=== PATIENT | female | born 1940 | race Caucasian/White ===

== ENCOUNTER → 2017-11-14 | Outpatient (CLI) | payer OTHER ==
[~2017-11-14] MED LIST: ALEVE220 MG PO; AMARYL4 MG PO; ASPIR 8181 M1 PO; ATENOLOL 25 MG25 M1 PO; ATENOLOL 50 MG50 M1 PO; ATENOLOL 50MG T50 M1 PO; AUGMENTIN 875875 M1 PO; CRESTOR10 MG PO; DARVOCET-N 1001 EAC1 PO; DIOVAN320 MG PO; DOXYCYCLINE 10100 M1 PO; FLUOXETINE HCL20 M1 PO; GAVISCON500 MG PO; GLUCOPHAGE1000 MG PO; GLUCOPHAGE500 MG PO; GLYBURIDE 5 MG T5 MG PO; HYDROCHLOROTHIA25 M1 PO; HYDROCODON-ACE1 EAC7 PO; HYZAAR 50-12.51 TAB PO; IBUPROFEN 200200 M1 PO; KEFLEX500 MG PO; LANTUS SC; LANTUS SOL100 UNIT/1 SQ; LEVEMIR SUBQ; LOSARTAN-HCTZ1 EAC3 PO; METFORMIN HCL500 MG PO; NORCO 5-325 TA1 EACH PO; NORVASC10 MG PO; NOVOLOG100 UNIT/1 SUBQ; PERCOCET 5-3251 EACH; PROZAC 20 MG20 M1 PO; PROZAC20 MG PO; SIMVASTATIN40 MG PO; VENTOLIN17 GM INH
== END ==
LOC: M.RAD 14:14
DX: N91.2 Amenorrhea, unspecified (principal); I10 Essential (primary) hypertension; E11.9 Type 2 diabetes mellitus without complications; Z78.0 Asymptomatic menopausal state

== ENCOUNTER → 2018-06-06 | Outpatient (CLI) | payer OTHER | LOC: M.RAD 16:12 | DX: M25.551 Pain in right hip (principal); M25.552 Pain in left hip; R10.2 Pelvic and perineal pain; I10 Essential (primary) hypertension; E11.9 Type 2 diabetes mellitus without complications; Z79.4 Long term (current) use of insulin ==

== ENCOUNTER 2018-11-17 15:05 | Emergency (ER) | payer OTHER ==
[~2018-11-17] VITALS: Ht 160 cm; Wt 74.8 kg
[2018-11-17 16:05] VITALS: BP 181/58
== END 2018-11-17 16:04 | disposition home or self-care (01) ==
LOC: M.ERS 15:05
DX: S61.215A Laceration without foreign body of left ring finger without damage to nail, initial encounter (principal); E11.9 Type 2 diabetes mellitus without complications; I10 Essential (primary) hypertension; Z86.73 Personal history of transient ischemic attack (TIA), and cerebral infarction without residual deficits; Z79.4 Long term (current) use of insulin; Z88.2 Allergy status to sulfonamides; Z91.041 Radiographic dye allergy status; Z90.49 Acquired absence of other specified parts of digestive tract; Z88.8 Allergy status to other drugs, medicaments and biological substances; W26.0XXA Contact with knife, initial encounter; Y93.89 Activity, other specified; Y92.89 Other specified places as the place of occurrence of the external cause; Y99.8 Other external cause status

== ENCOUNTER → 2019-05-08 | Outpatient (CLI) | payer OTHER | LOC: M.RAD 09:55 | DX: M25.561 Pain in right knee (principal); I25.10 Atherosclerotic heart disease of native coronary artery without angina pectoris ==

== ENCOUNTER 2019-07-08 13:25 | Emergency (ER) | payer OTHER ==
[~2019-07-08] VITALS: Ht 160 cm; Wt 74.8 kg
[2019-07-08] MEDS ORDERED: NORCO 5-325 TA1 EAC1 PO (14:35)
[2019-07-08 14:49] VITALS: BP 160/85
== END 2019-07-08 14:50 | disposition home or self-care (01) ==
LOC: M.ERS 13:25
DX: S46.811A Strain of other muscles, fascia and tendons at shoulder and upper arm level, right arm, initial encounter (principal); I10 Essential (primary) hypertension; E11.9 Type 2 diabetes mellitus without complications; Z86.73 Personal history of transient ischemic attack (TIA), and cerebral infarction without residual deficits; Z79.4 Long term (current) use of insulin; Z88.2 Allergy status to sulfonamides; Z90.49 Acquired absence of other specified parts of digestive tract; Z90.710 Acquired absence of both cervix and uterus; Z91.041 Radiographic dye allergy status; Z88.8 Allergy status to other drugs, medicaments and biological substances; W01.0XXA Fall on same level from slipping, tripping and stumbling without subsequent striking against object, initial encounter; Y93.89 Activity, other specified; Y92.89 Other specified places as the place of occurrence of the external cause; Y99.8 Other external cause status

== ENCOUNTER 2020-01-23 15:00 | Emergency (ER) | payer OTHER ==
[~2020-01-23] VITALS: Ht 160 cm; Wt 74.8 kg
[~2020-01-23 15:00] MED LIST changes: +NORCO 5-325 TA1 EAC1 PO
[2020-01-23 15:49] LABS: HEMATOCRIT 37.2 % (37.0-47.0); HEMOGLOBIN 12.3 gm/dL (12.0-15.0); MCH 28.8 pg (26.0-34.0); MCHC 33.1 g/dL (28.0-37.0); RBC 4.28 mil/uL (4.20-5.00); RDW-CV 14.6 % (10.5-14.5); WBC 6.5 thou/uL (4.0-11.0)
[2020-01-23 16:00] LABS: CREATININE 0.9 mg/dL (0.6-1.3); POTASSIUM 3.8 mmol/L (3.5-5.1)
[2020-01-23 16:12] LABS: ALBUMIN 3.7 g/dL (3.4-5.0); TOTAL BILIRUBIN 0.2 mg/dL (<0.1-1.0); TOTAL PROTEIN 7.3 g/dL (6.4-8.2)
[2020-01-23 16:47] VITALS: BP 152/70
--- NOTE | 2020-01-24 09:27 | EKG ---
[place] [address] ELECTROCARDIOGRAM REPORT Name: SPARKLE CAPONE Room: [facility]#: [id number] Admission: 01/23/20 Attend Phys: Discharge: 01/23/20 Date of : 36 Date of Service: 01/23/20 1505 Report #: [id number] THIS REPORT FOR: //name// [facility] ED Test Date: 2020-01-23 Test Time: 15:05:33 Pat Name: SPARKLE CAPONE Department: Room: Gender: F Guide Changer: EUSEBIO : 1940 Requested By: Damien Joseph Order Number: [id number] Reading MD: Ap Plummer Measurements Intervals [place] Rate: 72 P: -17 CA: 204 QRS: -7 QRSD: 104 T: 40 QT: 426 QTc: 467 Interpretive Statements Sinus rhythm Abnormal R-wave progression, early transition Left ventricular hypertrophy Baseline wander in lead(s) V2,V4 Compared to ECG 03/30/2015 10:38:38 Sinus arrhythmia no longer present ST (T wave) deviation no longer present Electronically Signed On 01-24-2020 9:25:54 CDT by Ap Plummer [email or web address] <ELECTRONICALLY SIGNED> By: Ap Plummer MD, FACC 01/24/20 0925 1505 1505 Ap Plummer MD, [facility] /EPI
== END 2020-01-23 16:48 | disposition home or self-care (01) ==
LOC: M.ERS 15:00
PROVIDERS: Emergency Medicine Emergency Medical Services
DX: I10 Essential (primary) hypertension (principal); E11.9 Type 2 diabetes mellitus without complications; Z91.041 Radiographic dye allergy status; Z88.2 Allergy status to sulfonamides; Z88.8 Allergy status to other drugs, medicaments and biological substances; Z90.49 Acquired absence of other specified parts of digestive tract; Z90.710 Acquired absence of both cervix and uterus; Z79.4 Long term (current) use of insulin

== ENCOUNTER → 2021-06-30 | Outpatient (CLI) | payer OTHER | LOC: M.ULTRA 10:41 | PROVIDERS: ATTEND Nurse Practitioner Family | DX: R22.42 Localized swelling, mass and lump, left lower limb (principal) ==